=== PATIENT | female | born 1980 | race Asian ===

== ENCOUNTER 2020-09-21 06:03 | Outpatient (REF) | payer OTHER, SELFPAY | END 2020-09-21 06:04 | disposition home or self-care (01) | LOC: HO.LAB 06:03 | PROVIDERS: Visit Provider Internal Medicine | DX: Z20.828 Contact with and (suspected) exposure to other viral communicable diseases (principal) | CPT/HCPCS: C9803; U0003 ==

== ENCOUNTER 2021-01-29 09:49 | Emergency (ER) | payer OTHER, SELFPAY ==
--- NOTE | ~2021-01-29 | XR_ITS ---
EXAMINATION: XR SCAPULA, LEFT CLINICAL INFORMATION: Atraumatic left shoulder pain. COMPARISON: None TECHNIQUE: AP and scapular Y views of the left scapula. FINDINGS: The bones and soft tissues are normal. No scapular fracture. Glenohumeral and acromioclavicular alignment is normal. XR/XR scapula LT IMPRESSION: Unremarkable left scapula.
[2021-01-29 09:55] VITALS: BP 110/65; PULSE 67; RESP 16; TEMP 36.6; O2SAT 99; BMI 28.1
[2021-01-29] MEDS: NaPROXEN 500 MG TABLET PO (10:33)
[2021-01-29] MEDS: diazePAM 5 MG TABLET PO (10:33)
--- NOTE | 2021-01-29 11:24 | ED.NECK ---
HPI - Neck Pain/Injury General Chief Complaint: General Medical Stated Complaint: neck pain Time Seen by Provider: 01/29/21 10:01 Source: patient and family Mode of arrival: ambulatory Limitations: no limitations History of Present Illness HPI Narrative: 40-year-old female with past medical history of asthma and GERD presenting to the ED with complaints of atraumatic left neck/shoulder pain that started this morning after she woke up. Reports she had a backpack on last night for a while but it was not heavy. Reports that she use a different pillow which is lower than her normal a pillow so this could be cause although patient is unsure. Denies any chills, fevers, headaches, dizziness, jaw pain, nausea/vomiting, neck stiffness, focal or general weakness, rashes, chest pain, paresthesias, dyspnea on exertion, shortness of breath, orthopnea, any symptoms or any other symptoms complaints or concerns at this time. MD complaint: neck pain Onset (ago): day(s) Place: home Radiation: left lateral Severity: moderate Quality: aching Duration: constant Relieving factors: none Exacerbating factors: other (Palpation and movement of neck) Context: unknown Associated symptoms: none Treatments prior to arrival: other (Topical treatments and mild symptomatic relief) Related Data Previous Rx's Medication Instructions Recorded diazepam [Valium] 5 mg PO TID PRN #14 tab 01/29/21 naproxen 500 mg PO BID PRN #10 tab 01/29/21 Allergies Allergy/AdvReac Type Severity Reaction Status Date / Time No Known Allergies Allergy Verified 01/29/21 09:55 Review of Systems Review of Systems: Constitutional : No trauma, No Weight loss, No Fever, No Chills, ENT/Mouth : No Hearing loss, No Ear Pain, No Nasal Congestion, No Sinus Pain, No Hoarseness, No sore throat, No Rhinorrhea, No Swallowing Difficulty Cardiovascular : No Chest Pain, No SOB Respiratory : No Cough, No Dyspnea Gastrointestinal : No Nausea, No Vomiting, No Diarrhea, No abdominal Pain, No Hematochezia, No Melena Genitourinary : No Dysuria, No Urinary Frequency, No Hematuria, No Urinary or Bowel Incontinence/retention Musculoskeletal : + Neck pain, No Back pain, No joint stiffness, No joint swelling Skin : No Skin Lesions, No rash or signs of infection Neuro : + Tingling to b/l arms, No Weakness, No radiation, No Numbness, No headache, no loss of bowel or bladder incontinence, no saddle anesthesia Denies history of IV drug usage. Yes all other systems are reviewed and are negative [facility] Past Medical History Attestation statement: The following information was validated with the patient. Medical History Asthma GERD (gastroesophageal reflux disease) Social History Social History Smoked in Last 30 Days: No Use of substances other than those prescribed or required for medical reasons: No Advance Directives: No Advance Directives Information Provided: No Physical Exam Vital Signs: Vital Signs: Last Vital Signs Temp 97.8 F 01/29/21 09:55 Pulse 67 01/29/21 09:55 Resp 16 01/29/21 09:55 BP 110/65 01/29/21 09:55 Pulse Ox 99 01/29/21 09:55 Body Mass Index 28.1 vital signs have been reviewed as normal and appeared to be correct. Blood pressure normal. Heart rate normal. Respiration rate normal. Temperature normal. Oxygen saturation normal. Appearance: Alert. Oriented X3. No acute distress. Head: Normal external exam. Normocephalic. Atraumatic. Eyes: PERRLA. EOMI. Conjunctiva and sclera normal. Eyelids normal. ENT: Pharynx normal. Uvula midline. Moist mucous membranes. No trismus noted. No drooling noted. No muffled voice noted. Neck: Normal inspection. Neck supple. FROM. No adenopathy. Thyroid Normal. Trachea midline. No meningeal signs. No neck mass noted. Tender to palpation of left lateral paracervical musculature/left trapezius muscular trigger. No mid cervical tenderness noted. No step-offs or deformities noted. Patient neuro intact bilaterally and distally on all 4 extremities. Reflexes intact bilaterally and distally in all 4 extremities. No rashes/lesion/induration/fluctuance or signs of infection noted. No edema noted. CVS: Normal heart rate and rhythm. Heart sound normal. No murmurs noted. Pulses normal throughout. Respiratory: No respiratory distress. Painless inspiration. Breath sounds normal. No wheezes/rales/rhonchi noted. Chest nontender. No accessory muscle usage noted or decreased air movement noted. Back: Full range of motion noted. No obvious deformities, or edema. Full ROM in back and lower extremities. Skin: Skin warm and dry. Normal skin color. Normal skin turgor. No rashes/lesions/lacerations noted. Extremities: Extremities exhibit normal range of motion. Extremities nontender. Neuro: Oriented X 3. No motor deficit. No sensory deficit. Reflexes normal. Normal steady gait. Course Course Course Narrative: Pt c likely muscular pain of left trapezius/left paracervical musculature, but could be herniated disc. Neuro exam shows no deficits. Not c/w vascular etiology, perivertebral / other soft tissue neck / airway infection, or spinal fx / process. MRI and CT not warranted at this time. DC c meds and f/u patient understands agrees with this plan. MDM - Neck Pain/Injury Medical Records Attestation: I reviewed the patient's medical records. Imaging Data Left trapezius x-ray: Attestation: I personally reviewed and interpreted this imaging study as follows: Radiologist's impression: FINDINGS: The bones and soft tissues are normal. No scapular fracture. Glenohumeral and acromioclavicular alignment is normal. XR/XR scapula LT IMPRESSION: Unremarkable left scapula. Discharge Plan Discharge Clinical Impression: Trapezius muscle spasm, Spasmodic torticollis Patient Disposition: Home, Self-Care Instructions: Spasmodic Torticollis (ED), Muscle Spasm (ED) Prescriptions: New naproxen 500 mg tablet 500 mg PO BID PRN (Reason: pain) Qty: 10 RF: 0 diazepam [Valium] 5 mg tablet 5 mg PO TID PRN (Reason: muscle spasm) Qty: 14 RF: 0 Referrals: Crystal Tripp PA [Primary Care Provider] - 2 days Stand Alone Forms: Work/School Release Print Language: Spanish
== END 2021-01-29 12:38 | disposition home or self-care (01) ==
PROVIDERS: Emergency Provider Emergency Medicine; PCP Physician Assistant
DX: G24.3 Spasmodic torticollis (principal); M62.838 Other muscle spasm; M54.2 Cervicalgia; K21.9 Gastro-esophageal reflux disease without esophagitis; J45.909 Unspecified asthma, uncomplicated
CPT/HCPCS: 73010; 99283; 99284

== ENCOUNTER 2023-09-01 08:48 | Emergency (ER) | payer OTHER, SELFPAY ==
--- NOTE | ~2023-09-01 | CT_ITS ---
EXAMINATION: CT ABDOMEN AND PELVIS WITH CONTRAST CLINICAL INFORMATION: Left lower quadrant pain. COMPARISON: Pelvic ultrasound 09/01/2023 TECHNIQUE: Multidetector volumetric images were obtained from the superior aspect of the liver through the pubic symphysis following administration 85 mL of Omnipaque 350 intravenous contrast. Sagittal and coronal reformatted images were obtained on the technologist's workstation. Oral contrast: No This CT examination was performed using dose optimization techniques as appropriate, variously including the following: *Automated exposure control *Adjustment of mA and/or kV according to patient size (this includes techniques or standardized protocols for targeted exams where dose is matched to indication/reason for exam; i.e. extremities or head) *Use of iterative reconstruction technique DLP: 551 mGy-cm FINDINGS: LUNG BASES: The visualized lung bases are unremarkable. LIVER, GALLBLADDER, AND BILIARY TREE: The liver is normal in size and contour. No focal hepatic lesion or biliary ductal dilatation is present. Large gallstones. PANCREAS: Unremarkable. SPLEEN: Unremarkable. ADRENAL GLANDS: Unremarkable. KIDNEYS AND URETERS: The kidneys are normal in size, shape, and attenuation. No hydronephrosis, hydroureter, or calculi seen. No perinephric stranding. BLADDER: Mild circumferential wall thickening. Perivesicular stranding. GASTROINTESTINAL TRACT: Wall thickening of the sigmoid colon. No significant diverticular disease. No small bowel obstruction. Appendix is within normal limits. ABDOMINAL WALL: No significant hernia is appreciated. LYMPH NODES: Numerous subcentimeter mesenteric lymph nodes are appreciated. VASCULAR: Normal caliber abdominal aorta. PELVIC VISCERA: Inflammatory changes in the parametrium. The uterus is anteverted. There is fullness of bilateral adnexa. Small free fluid in the pelvis. OSSEOUS STRUCTURES: No destructive bone lesions. CT/CT abdomen pelvis w IV con IMPRESSION: Inflammatory changes in the pelvis most notably surrounding the uterus and ovaries. There is wall thickening of the sigmoid colon. There is perivesicular stranding. The possibility of pelvic inflammatory disease should be considered. Other possibilities include cystitis or colitis though these findings may be on a reactive basis. Advise clinical correlation. Cholelithiasis.
--- NOTE | ~2023-09-01 | US_ITS ---
EXAMINATION: US PELVIS CLINICAL INFORMATION: Severe pelvic pain COMPARISON: None available. TECHNIQUE: Ultrasound of the pelvis is performed using both transabdominal and transvaginal transducers along with Doppler. Transvaginal imaging is performed due to inadequate visualization transabdominally. FINDINGS: Uterus: The uterus is anteverted, retroflexed and measures 8.2 x 4.6 x 5.4 cm The double wall endometrial thickness is 0.5 cm. The uterus is smooth in contour and has normal myometrial echogenicity. There is a hypoechoic lesion in the right fundus measuring 2.0 x 1.6 x 1.6 cm suggestive of small fibroid. Adnexa: Both ovaries are visualized. There is normal color flow to the adnexa. There is no ovarian torsion. There is no pelvic ascites or fluid collection. Right ovary measures 3.6 x 3.1 x 2.1 cm and volume 12.2 mL there is anechoic cyst measuring 1.9 x 1.6 x 1.5 cm Left ovary measures 3.1 x 2.0 x 1.3 cm and volume 4.3 mL. No focal lesion seen. There is normal flow seen to both ovaries on color Doppler ultrasound. There is no free fluid in the cul-de-sac. US/US pelvic and transvaginal IMPRESSION: Small right uterine fibroid. Simple right ovarian cyst. Both ovaries are otherwise unremarkable.
--- NOTE | ~2023-09-01 | US_ITS ---
EXAMINATION: US PELVIS CLINICAL INFORMATION: Severe pelvic pain COMPARISON: None available. TECHNIQUE: Ultrasound of the pelvis is performed using both transabdominal and transvaginal transducers along with Doppler. Transvaginal imaging is performed due to inadequate visualization transabdominally. FINDINGS: Uterus: The uterus is anteverted, retroflexed and measures 8.2 x 4.6 x 5.4 cm The double wall endometrial thickness is 0.5 cm. The uterus is smooth in contour and has normal myometrial echogenicity. There is a hypoechoic lesion in the right fundus measuring 2.0 x 1.6 x 1.6 cm suggestive of small fibroid. Adnexa: Both ovaries are visualized. There is normal color flow to the adnexa. There is no ovarian torsion. There is no pelvic ascites or fluid collection. Right ovary measures 3.6 x 3.1 x 2.1 cm and volume 12.2 mL there is anechoic cyst measuring 1.9 x 1.6 x 1.5 cm Left ovary measures 3.1 x 2.0 x 1.3 cm and volume 4.3 mL. No focal lesion seen. There is normal flow seen to both ovaries on color Doppler ultrasound. There is no free fluid in the cul-de-sac. US/US pelvic ovarian doppler IMPRESSION: Small right uterine fibroid. Simple right ovarian cyst. Both ovaries are otherwise unremarkable.
[2023-09-01 08:51] VITALS: BP 115/83; PULSE 97; RESP 18; TEMP 36.7; O2SAT 97; BMI 32.7
--- NOTE | 2023-09-01 09:11 | ED.ABDPAIN ---
HPI - Abdominal Pain General Chief Complaint: Abdominal Pain Stated Complaint: Stomach and Lower Abd Pain Time Seen by Provider: 09/01/23 08:59 Source: patient Mode of arrival: ambulatory Limitations: no limitations History of Present Illness HPI narrative: 43 yo female with PMH of GERD, asthma no prior abdominal surgeries here with c/o holding her urination due to deadline yesterday then when she went to urinate it hurt and now she has intense lower abdomial pain with nausea. She is on her menses. The pain was more severe yesterday. She has not been able to eat or drink much. She has never experienced this before. She is able to urinate. MD elicited complaint: abdominal pain Pertinent past history: none Onset (ago): day(s) (1) Pain Consistency: constant Location: RLQ, LLQ and suprapubic Severity: moderate Quality: cramping Radiation: none Migration to: no migration Exacerbating factors: movement Relieving factors: nothing Associated symptoms: nausea Treatments prior to arrival: other (tylenol) Related Data Previous Rx's Medication Instructions Recorded diazepam 5 mg tablet (Valium) 5 mg PO TID PRN muscle spasm #14 01/29/21 tabs naproxen 500 mg tablet 500 mg PO BID PRN pain #10 tabs 01/29/21 doxycycline hyclate 100 mg tablet 100 mg PO BID 14 days #28 tabs 09/01/23 hydrocodone 5 mg-acetaminophen 325 1 tab PO Q6H PRN pain #10 tabs 09/01/23 mg tablet metronidazole 500 mg tablet 500 mg PO BID #28 tabs 09/01/23 ondansetron 4 mg disintegrating 4 mg PO Q8H PRN nausea and 09/01/23 tablet vomiting #20 tabs Allergies Allergy/AdvReac Type Severity Reaction Status Date / Time No Known Allergies Allergy Verified 09/01/23 08:55 Review of Systems Review of Systems Constitutional : No Weight loss, No Fever, No Chills ENT/Mouth : No sore throat, No Rhinorrhea Eyes: No Swelling, No Redness Cardiovascular : No Chest Pain, No SOB, NoEdema Respiratory : No Cough, No Sputum, No Wheezing Gastrointestinal : Positive Nausea, no Vomiting, no Diarrhea, positive abdominal Pain, No Hematochezia, No Melena Genitourinary : No Dysuria, No Urinary Frequency, No Hematuria, No Urgency Musculoskeletal : No joint pain, No Myalgias, No Joint Swelling Skin : No Skin Lesions, No rash Neuro : No Weakness, No Numbness, No Dizziness, No Headache Psych : No Anxiety/Panic, No Depression Heme/Lymph: No Bruising, No Lymphadenopathy Endocrine : No Polyuria, No Polydipsia All other systems reviewed and are negative. COUNTS INCLUDE 234 BEDS AT THE [facility] Past Medical History Attestation statement: The following information was validated with the patient. Medical History GERD (gastroesophageal reflux disease) Asthma Social History Social History (Updated 09/01/23 @ 09:26 by Stormy Burns DO) Patient Tobacco Use Status: Never used Tobacco Advance Directives: No Advance Directives Information Provided: No Physical Exam ED Vital Signs: Vital Signs - 24 hr 09/01/23 08:51 09/01/23 10:53 09/01/23 13:06 Temperature 98.0 F 98.6 F 98.5 F Pulse Rate 97 85 82 Respiratory Rate 18 16 16 Blood Pressure 115/83 110/59 L 109/69 Pulse Oximetry 97 99 99 Oxygen Delivery Method Room Air Room Air Room Air 09/01/23 13:34 Temperature Pulse Rate 70 Respiratory Rate 20 Blood Pressure 111/66 Pulse Oximetry 99 Oxygen Delivery Method Room Air BMI result Body Mass Index 32.7 Appearance: Alert. Oriented X3. No acute distress. Eyes: Pupils equal, round and reactive to light. ENT: Pharynx normal. Neck: Normal inspection. Neck supple. CVS: Normal heart rate and rhythm. Pulses normal. Respiratory: No respiratory distress. Breath sounds normal. : Holly tech present mild CMT and ttp with palpation of uterus - scant red blood noted on menses Abdomen: Soft and moderate ttp in LLQ Skin: Skin warm and dry. Normal skin color. Normal skin turgor. Extremities: No lower extremity edema. No calf ttp Neuro: Oriented X 3. No motor deficit. No sensory deficit. Medical Decision Making Medical Decision Making MDM Narrative: 43 yo female with PMH of asthma and GERD here with c/o lower abdominal pain and nausea initially worse yesterday now painful and lingering she is on her menses at this time will need basic labs, start with US for ovarian cyst, IV morphine/toradol for pain, UA. If US negative will proceed with CT scan for diverticulitis/colitis. Differential Diagnosis Differential Diagnoses: The differential diagnosis associated with the presentation includes renal colic, ovarian cyst, painful menses, diverticulitis Admission/Observation Consideration of admission/observation: Escalation of care including admission/observation considered not toxic, labs stable, tolerating PO can be managed as outpatient Lab Data MDM Lab Attestation statement: I reviewed the patient's lab results. 09/01/23 09:37 09/01/23 09:37 Labs: Lab Results 09/01/23 09/01/23 09/01/23 Range/Units 09:21 09:37 12:08 WBC 12.4 H (4.8-10.8) X10*3/uL RBC 3.95 L (4.20-5.50) X10*6/uL Hgb 11.4 L (12.0-16.0) g/dl Hct 34.1 L (37.0-47.0) % MCV 86.3 (80.0-98.0) fL MCH 28.9 (27.0-33.0) pg MCHC 33.4 (31.0-35.0) g/dl RDW 14.6 (11.0-16.0) % Plt Count 226 (160-400) X10*3/uL MPV 10.4 (9.4-12.3) fL Immature Gran % (Auto) 0.2 (0.0-0.4) % Neut % (Auto) 78.3 H (45-73) % Lymph % (Auto) 15.6 L (20-40) % [place] % (Auto) 5.4 (2-11) % Eos % (Auto) 0.3 (0-4) % Baso % (Auto) 0.2 (0-2) % Lymph # (Auto) 1.9 (1.2-4.9) X10*3/uL [place] # (Auto) 0.7 (0.1-1.2) X10*3/uL Eos # (Auto) 0.0 (0.0-0.4) X10*3/uL Baso # (Auto) 0.0 (0.0-0.2) X10*3/uL Abs Immat Gran (auto) 0.03 (0.00-0.03) X10*3/uL Absolute Neuts (auto) 9.7 H (2.0-8.3) x10*3/uL Absolute Nucleated RBC 0.000 (0.0-0.012) X10*3/uL Nucleated RBC % (auto) 0.0 (0.0-0.2) /100WBC Sodium 139 (135-145) mmol/L Potassium 3.6 (3.3-5.1) mmol/L Chloride 109 H (96-108) mmol/L Carbon Dioxide 24 (22-29) mmol/L Anion Gap 10 L (12-20) BUN 9 (9-16) mg/dL Creatinine 0.67 (0.5-1.4) mg/dL Estim Creat Clear Calc 99.6 Estimated GFR > 60 POC Glucose 109 (60-115) mg/dL Random Glucose 121 H (60-115) mg/dL Calcium 8.8 (8.4-10.2) mg/dL Magnesium 2.2 (1.6-2.6) mg/dL Total Bilirubin 0.6 (0.0-1.0) mg/dL Direct Bilirubin 0.2 (0.0-0.5) mg/dL AST 16 (5-31) U/L ALT 16 (0-31) U/L Alkaline Phosphatase 38 L (39-117) U/L Total Protein 7.0 (6.5-8.0) g/dL Albumin 3.9 (3.5-5.0) g/dL Lipase 16 (8-78) U/L Urine Color Yellow Urine Appearance Clear Urine pH 6.5 (5.0-9.0) Ur Specific [place] <= 1.005 (1.005-1.025) Urine Protein Negative (Neg-Trace) mg/dL Urine Glucose (UA) Negative (Negative) mg/dL Urine Ketones Negative (Negative) mg/dL Urine Blood Moderate (2+) H (Negative) Urine Nitrite Negative (Negative) Ur Leukocyte Esterase Small (1+) H (Negative) Urine RBC 0-2 (0-2) /HPF Urine WBC 0-5 (0-5) /HPF Ur Squamous Epith Cells 3-5 (0-2) /HPF Urine Bacteria None Seen (None Seen) Hyaline Casts 0-2 (0-2) /LPF Urine Test NEGATIVE (NEGATIVE) Independent Interpretation I performed an independent interpretation of an: Ultrasound and CT Scan (possible PID) Radiology Impression Discussion of test interpretation with radiology: I have reviewed the radiologist's reading. Prescription Management I considered prescription management with: Pain Medication and Antibiotic Medications Administered Discontinued Medications Generic Name Dose Route Start Last Admin Trade Name Samuel PRN Reason Stop Dose Admin Acetaminophen 650 mg 09/01/23 14:06 09/01/23 14:09 Acetaminophen 325 Mg Tablet PO 09/01/23 14:07 650 mg ONCE ONE Administration Sodium Chloride 1,000 mls @ 999 mls/hr 09/01/23 09:30 09/01/23 12:13 Ns IVCONT 09/01/23 10:30 Infused .Q1H1M [place] Infusion Ceftriaxone Sodium 1 gm/ 50 mls @ 100 mls/hr 09/01/23 15:14 09/01/23 15:34 Sodium Chloride IV 09/01/23 15:43 100 mls/hr ONCE ONE Administration Iohexol 100 ml 09/01/23 13:02 09/01/23 13:02 Iohexol 350 Mg/Ml 100 Ml Infus..Btl IV 09/01/23 13:03 85 ml ONCE ONE Administration Ketorolac Tromethamine 15 mg 09/01/23 09:17 09/01/23 09:40 Ketorolac Tromethamine 15 Mg/Ml Vial IVPUSH 09/01/23 09:18 15 mg ONCE ONE Administration Morphine Sulfate 4 mg 09/01/23 09:17 09/01/23 09:41 Morphine Sulfate 4 Mg/Ml Cartridge IVPUSH 09/01/23 09:18 4 mg ONCE ONE Administration Protocol Ondansetron HCl 4 mg 09/01/23 09:17 09/01/23 09:40 Ondansetron Hcl 4 Mg/2 Ml Vial IVPUSH 09/01/23 09:18 4 mg ONCE ONE Administration Discharge Plan Discharge Clinical Impression: Acute pelvic inflammatory disease (PID) Patient Disposition: Home, Self-Care Instructions: Pelvic Inflammatory Disease (ED) Additional Instructions: we will call you with positive results of gonorrhea and chlamydia suspect this is just PID can be caused by bacteria as well. On doxycycline, do not take pills immediately before going to bed and swallow pills with plenty of water. Avoid direct sunlight, iron, antacids, and Pepto Bismol. Call your provider if you develop new ringing in your ears, new problems hearing, dizziness, difficulty swallowing, rash, abdominal discomfort, nausea, or diarrhea.? take a probiotic while on antibiotics while on flagyl you cannot drink alcohol follow up with your doctor in the next week return for fevers, vomiting, worsening pain, inability to eat or drink or any other concerns. US/US pelvic and transvaginal IMPRESSION: Small right uterine fibroid. Simple right ovarian cyst. Inflammatory changes in the pelvis most notably surrounding the uterus and ovaries. There is wall thickening of the sigmoid colon. There is perivesicular stranding. The possibility of pelvic inflammatory disease should be considered Prescriptions: New metronidazole 500 mg tablet 500 mg PO BID Qty: 28 0RF doxycycline hyclate 100 mg tablet 100 mg PO BID 14 Days Qty: 28 0RF ondansetron 4 mg tablet,disintegrating 4 mg PO Q8H PRN (Reason: nausea and vomiting) Qty: 20 0RF hydrocodone-acetaminophen 5-325 mg tablet 1 tab PO Q6H PRN (Reason: pain) Qty: 10 0RF Rx Instructions: partial fill okay; Partial Fill upon patient request. No Action naproxen 500 mg tablet 500 mg PO BID PRN (Reason: pain) Qty: 10 0RF diazepam [Valium] 5 mg tablet 5 mg PO TID PRN (Reason: muscle spasm) Qty: 14 0RF
[2023-09-01 09:24] LABS: Glucose, Whole Blood 109 mg/dL (60-115)
[2023-09-01 09:40] LABS: MANUAL DIFF FLAG NO
[2023-09-01] MEDS: ondansetron HCL 4 MG/2 ML VIAL IVPUSH (09:40)
[2023-09-01] MEDS: Ketorolac Tromethamine 15 MG/ML VIAL IVPUSH (09:40)
[2023-09-01] MEDS: 0.9 % Sodium Chloride 1,000 ML 999 ML IVCONT (09:40)
[2023-09-01 09:41] LABS: Basophils Percent Auto 0.2 % (0-2); Eosinophils Percent Auto 0.3 % (0-4); Hematocrit 34.1 % (37.0-47.0); Hemoglobin 11.4 g/dl (12.0-16.0); Imm Gran Abs Auto 0.03 X10*3/uL (0.00-0.03); Imm Gran Pct Auto 0.2 % (0.0-0.4); Lymphocytes Absolute Auto 1.9 X10*3/uL (1.2-4.9); Lymphocytes Percent Auto 15.6 % (20-40); Mean Corpuscular HGB Conc 33.4 g/dl (31.0-35.0); Mean Corpuscular Hemoglobin 28.9 pg (27.0-33.0); Mean Corpuscular Volume 86.3 fL (80.0-98.0); Mean Platelet Volume 10.4 fL (9.4-12.3); Monocytes Absolute Auto 0.7 X10*3/uL (0.1-1.2); Monocytes Percent Auto 5.4 % (2-11); Neutrophils Absolute Auto 9.7 x10*3/uL (2.0-8.3); Neutrophils Percent Auto 78.3 % (45-73); Platelet Count 226 X10*3/uL (160-400); Red Blood Count 3.95 X10*6/uL (4.20-5.50); Red Cell Distribution Width 14.6 % (11.0-16.0); White Blood Count 12.4 X10*3/uL (4.8-10.8)
[2023-09-01] MEDS: Morphine Sulfate 4 MG/ML CARTRIDGE IVPUSH (09:41)
--- NOTE | 2023-09-01 09:53 | PC.NURSE ---
iv established, labs drawn and sent. medicated per the MAR with fluids infusing at this time. awaiting ultrasound with call owens in reach, resting quietly in room respirations even and unlabored.
[2023-09-01 09:56] LABS: Alanine Aminotransferase 16 U/L (0-31); Albumin Level 3.9 g/dL (3.5-5.0); Alkaline Phosphatase 38 U/L (39-117); Anion Gap 10 (12-20); Aspartate Amino Transferase 16 U/L (5-31); Bilirubin Direct 0.2 mg/dL (0.0-0.5); Bilirubin Total 0.6 mg/dL (0.0-1.0); Blood Urea Nitrogen 9 mg/dL (9-16); Calcium 8.8 mg/dL (8.4-10.2); Carbon Dioxide 24 mmol/L (22-29); Chloride 109 mmol/L (96-108); Creatinine Clr Calc Pharmacy 99.6; Estimated Glomerular Filt Rate > 60; Glucose Random 121 mg/dL (60-115); Lipase 16 U/L (8-78); Magnesium 2.2 mg/dL (1.6-2.6); Potassium 3.6 mmol/L (3.3-5.1); Sodium 139 mmol/L (135-145)
[2023-09-01 10:53] VITALS: BP 110/59; PULSE 85; RESP 16; TEMP 37; O2SAT 99
--- NOTE | 2023-09-01 10:53 | PC.NURSE ---
patient back from ultrasound at this time, reporting improvement in her pain
[2023-09-01 12:18] LABS: Appearance Urine Clear; Color Urine Yellow; Glucose Urine UA Negative (Negative); Leukocyte Esterase Urine Small (1+) (Negative); Nitrite Urine Negative (Negative); PH 6.5 (5.0-9.0); Specific Gravity - Urine <= 1.005 (1.005-1.025); UMIC TRIGGER UACC YES; UPreg QC Valid YES; Urine Blood Moderate (2+) (Negative); Urine Ketones Negative (Negative); Urine Pregnancy NEGATIVE (NEGATIVE); Urine Protein Negative (Neg-Trace)
[2023-09-01 12:25] LABS: Bacteria Urine None Seen (None Seen); Hyaline Casts Urine 0-2 /LPF (0-2); RBC Urine 0-2 /HPF (0-2); UACC Culture Trigger YES; WBC Urine 0-5 /HPF (0-5)
[2023-09-01] MEDS: iohexoL 350 MG/ML 100 ML INFUS..BTL IV (13:02)
[2023-09-01 13:06] VITALS: BP 109/69; PULSE 82; RESP 16; TEMP 36.9; O2SAT 99
--- NOTE | 2023-09-01 13:07 | PC.NURSE ---
continues to rest quietly in room, awaiting results of ct scan
[2023-09-01 13:34] VITALS: BP 111/66; PULSE 70; RESP 20; O2SAT 99
[2023-09-01] MEDS: Acetaminophen 325 MG TABLET 650 MG PO (14:09)
[2023-09-01] MEDS: cefTRIAXone sodium 1 GM in 0.9 % Sodium Chloride 50 ML IV (15:34)
[2023-09-02 13:09] LABS: CT PCR NOT DETECTED (Not Detect.); NG PCR NOT DETECTED (Not Detect.)
[2023-09-02 13:33] LABS: BV Int Neg Control Negative (Negative); BV Int Pos Control Positive (Positive)
== END 2023-09-01 16:05 | disposition home or self-care (01) ==
PROVIDERS: Emergency Provider Emergency Medicine; PCP Physician Assistant
DX: N73.9 Female pelvic inflammatory disease, unspecified (principal); R10.2 Pelvic and perineal pain; R10.32 Left lower quadrant pain; R11.2 Nausea with vomiting, unspecified; R10.31 Right lower quadrant pain; Z79.899 Other long term (current) drug therapy
CPT/HCPCS: 0353U; 36415; 74177; 76830; 76856; 80048; 80076; 81001; 81025; 82947; 83690; 83735; 85025; 87086; 87480; 87510; 87660; 93975; 96361; 96374; 96375; 99285; J0696; J1885; J2270; J2405; Q9967

== ENCOUNTER 2024-12-03 08:19 | Emergency (ER) | payer OTHER, SELFPAY ==
--- NOTE | 2024-12-03 | ECG_ITS ---
Test Reason : CP Blood Pressure : */* mmHG Vent. Rate : 77 BPM Atrial Rate : 77 BPM P-R Int : 174 ms QRS Dur : 86 ms QT Int : 402 ms P-R-T Axes : 46 25 32 degrees QTcB Int : 454 ms Normal sinus rhythm Normal ECG No previous ECGs available Referred By: Generic ED Physician Electronically Signed By: Michael Gomez
[2024-12-03 08:24] VITALS: BP 132/79; PULSE 72; RESP 16; TEMP 36.6; O2SAT 100; BMI 31.6
[2024-12-03 08:49] LABS: MANUAL DIFF FLAG NO
[2024-12-03 08:50] LABS: Basophils Percent Auto 0.4 % (0-2); Eosinophils Absolute Auto 0.1 X10*3/uL (0.0-0.4); Eosinophils Percent Auto 1.4 % (0-4); Hematocrit 39.4 % (37.0-47.0); Hemoglobin 13.2 g/dl (12.0-16.0); Imm Gran Abs Auto 0.01 X10*3/uL (0.00-0.03); Imm Gran Pct Auto 0.1 % (0.0-0.4); Lymphocytes Absolute Auto 2.4 X10*3/uL (1.2-4.9); Mean Corpuscular HGB Conc 33.5 g/dl (31.0-35.0); Mean Corpuscular Hemoglobin 28.8 pg (27.0-33.0); Mean Platelet Volume 10.2 fL (9.4-12.3); Monocytes Absolute Auto 0.3 X10*3/uL (0.1-1.2); Monocytes Percent Auto 4.1 % (2-11); Neutrophils Absolute Auto 4.9 x10*3/uL (2.0-8.3); Platelet Count 233 X10*3/uL (160-400); Red Blood Count 4.58 X10*6/uL (4.20-5.50); White Blood Count 7.8 X10*3/uL (4.8-10.8)
[2024-12-03 09:11] LABS: Alanine Aminotransferase 27 U/L (0-31); Albumin Level 4.2 g/dL (3.5-5.0); Alkaline Phosphatase 34 U/L (39-117); Anion Gap 18 (12-20); Aspartate Amino Transferase 18 U/L (5-31); Bilirubin Total 0.3 mg/dL (0.0-1.0); Blood Urea Nitrogen 13 mg/dL (9-16); Carbon Dioxide 22 mmol/L (22-29); Chloride 107 mmol/L (96-108); Creatinine Clr Calc Pharmacy 90.1; Estimated Glomerular Filt Rate > 60; Glucose Random 115 mg/dL (60-115); Potassium 4.3 mmol/L (3.3-5.1); Sodium 143 mmol/L (135-145); Total Protein 7.5 g/dL (6.5-8.0)
[2024-12-03 09:24] LABS: HCG Quantitative < 2 mIU/mL; Troponin-I High Sensitivity < 2.7 ng/L (<3.5-17.0)
--- NOTE | 2024-12-03 12:28 | ED_ITS ---
HPI - General Adult General Chief complaint: General Medical Stated complaint: Neck pain/stiffness R side Time Seen by Provider: 12/03/24 12:28 Source: patient Mode of arrival: ambulatory Limitations: no limitations History of Present Illness ED Provider: Lynnette Jimenez PA-C HPI narrative: Patient is a 44 year old assigned female at with a history of asthma and GERD presenting to the emergency department today with right sided neck pain and a headache. Patient states that she started having right sided neck and head pain late last night and it has continued into today. Patient states that her neck feels tight and is difficult to move. Patient denies any dizziness, lightheadedness, abdominal pain, nausea, vomiting, fever, chills, blurry vision, double vision, loss of vision, chest pain, difficulty breathing, shortness of breath, back pain, night sweats, pain with urination, increased urinary frequency, increased urinary urgency, blood in her urine or stool, syncope or a near syncopal episode, recent trauma or falls, bowel incontinence, bladder incontinence, or any other complaints at this time. Onset (ago): hour(s) Location: neck and right Exacerbating factors: movement Associated symptoms: denies other symptoms Treatments prior to arrival: none Related Data Previous Rx's ?Medication ?Instructions ?Recorded diazepam 5 mg tablet (Valium) 5 mg PO TID PRN muscle spasm #14 01/29/21 tabs naproxen 500 mg tablet 500 mg PO BID PRN pain #10 tabs 01/29/21 doxycycline hyclate 100 mg tablet 100 mg PO BID 14 days #28 tabs 09/01/23 hydrocodone 5 mg-acetaminophen 325 1 tab PO Q6H PRN pain #10 tabs 09/01/23 mg tablet metronidazole 500 mg tablet 500 mg PO BID #28 tabs 09/01/23 ondansetron 4 mg disintegrating 4 mg PO Q8H PRN nausea and 09/01/23 tablet vomiting #20 tabs cyclobenzaprine 5 mg tablet 5 mg PO TID PRN muscle spasm 7 12/03/24 days #21 tabs Allergies Allergy/AdvReac Type Severity Reaction Status Date / Time No Known Allergies Allergy Verified 12/03/24 08:31 Review of Systems 2 Constitutional: Constitutional: Reports no additional constitutional complaints, Denies chills, Denies fever(s), Reports headache(s) and Denies night sweats Eyes: Eyes: Reports no additional eye complaints, Denies blurry vision, Denies change in vision, Denies diplopia, Denies eye discharge, Denies loss of vision and Denies eye pain ENT: Denies dizziness and Reports headache(s) Comments: right sided neck pain Cardiovascular: Cardiovascular: Reports no additional cardiovascular complaints, Denies chest pain, Denies lightheadedness, Denies Loss of Consciousness and Denies dyspnea Respiratory: Respiratory: Reports no additional respiratory complaints and Denies dyspnea Gastrointestinal: Gastrointestinal: Reports no additional gastrointestinal complaints, Denies abdominal pain, Denies melena, Denies hematochezia, Denies change in bowel habits and Denies change in stool character Genitourinary: Genitourinary: Denies hematuria, Denies urinary frequency, Denies dysuria, Denies urinary incontinence, Denies urinary hesitancy and Denies urinary urgency Musculoskeletal: Musculoskeletal: Reports no additional musculoskeletal complaints, Denies numbness and Denies tingling Neurologic: Denies dizziness, Reports headache(s), Denies loss of vision, Denies numbness and Denies tingling Psychiatric: Psychiatric: Reports no additional psychiatric complaints Endocrine: Endocrine: Reports no additional endocrine complaints Hematologic/Lymphatic: Hematologic/Lymphatic: Reports no additional hematologic/lymphatic complaints Allergic/Immunologic: Allergic/Immunologic: Reports no additional allergic/immunologic complaints PMFSH Past Medical History Attestation statement: The following information was validated with the patient. Source: old records reviewed and nursing notes reviewed Medical History GERD (gastroesophageal reflux disease) Asthma Social History Social History Patient Tobacco Use Status: Never used Tobacco Advance Directives: No Advance Directives Information Provided: Yes Physical Exam ED Vital Signs: Vital Signs - 24 hr 12/03/24 08:24 12/03/24 13:14 12/03/24 13:16 Temperature 97.9 F 0 F L 0 F L Pulse Rate 72 16 L 16 L Respiratory Rate 16 16 Blood Pressure 132/79 128/88 128/88 Pulse Oximetry 100 97 97 Oxygen Delivery Method Room Air Room Air Room Air BMI result Body Mass Index 31.6 Const General: cooperative, no acute distress, alert and awake Nutritional Appearance: well nourished Orientation/consciousness: patient oriented x3 Limitations: no limitations HENMT Head: Yes normal to inspection and Yes atraumatic Ears: hearing grossly normal bilaterally and external ears normal General nose exam: Normal external nose present, no nasal discharge noted and no epistaxis Face and sinus: Yes normal facial exam, No abrasion and No laceration Mouth: Normal oral and palatal mucosa present, no drooling and no muffled voice Eyes General: appearance normal, both eyes and all related structures Periorbital: periorbital findings normal Eyelids: Yes eyelids normal Conjunctivae: conjunctivae normal Pupils: Equal, round and reactive pupils present EOM: EOMs intact bilaterally Neck Other: limited range of motion of the neck to the right secondary to pain Neck: Yes normal visual inspection and Yes no lymphadenopathy Chest Chest palpation & inspection: normal inspection of the chest Resp Effort & Inspection: normal respiratory effort and able to speak in complete sentences GI Inspection: Yes normal to inspection Neuro General: patient oriented x3, moves all extremities and CN's II-XI intact bilaterally Cranial nerves: Yes Equal, round and reactive pupils present Cognition (Neuro): normal cognition Extrem General: Yes normal to inspection, Yes full ROM and Yes capillary refill normal Psych Appearance: grossly normal Mental Status: mental status grossly normal Affect: normal affect Attitude: cooperative Thought process: Normal thought process present Thought content: Normal thought content present Insight: Good insight present (Psych) Medications Administered Discontinued Medications Generic Name Dose Route Start Last Admin Trade Name Samuel PRN Reason Stop Dose Admin Diazepam 2 mg 12/03/24 12:50 12/03/24 13:12 Diazepam 2 Mg Tablet PO 12/03/24 12:51 2 mg ONCE ONE Administration Ketorolac Tromethamine 15 mg 12/03/24 12:50 12/03/24 13:11 Ketorolac Tromethamine 15 Mg/Ml Vial IM 12/03/24 12:51 15 mg ONCE ONE Administration Medical Decision Making Medical Decision Making MDM Narrative: Patient is a 44 year old assigned female at with a history of asthma and GERD presenting to the emergency department today with right sided neck pain and a headache. Patient's physical exam was as noted in the physical exam portion of this note and most consistent with a muscle spasm. Patient's blood work was unremarkable. Patient's EKG was unremarkable. I explained my physical exam findings as well as all test results to the patient. I answered all questions asked by the patient. I stressed the importance of the patient taking her medication as directed (either prescribed or as the over the counter packaging recommends). I stressed the importance of the patient following up with her primary care provider. I stressed the importance of the patient returning to the emergency department immediately if her symptoms were to worsen or if she were to develop any dizziness, shortness of breath, difficulty breathing, chest pain, blurry vision, loss of vision, nausea, vomiting, abdominal pain, fever, chills, back pain, or any other complaints. Patient verbalized agreement and understanding with this treatment plan and discharge. Differential Diagnosis Differential Diagnoses: The differential diagnosis associated with the presentation includes Right sided neck pain Cervical strain Cervical sprain Muscle spasm Admission/Observation Consideration of admission/observation: Escalation of care including admission/observation considered Patient would have been admitted to the hospital had her work up had any findings where hospital admission was appropriate and her clinical presentation warranted hospital admission. Lab Data [facility] Lab Attestation statement: I reviewed the patient's lab results. My interpretation of these results are in the [facility] Rationale portion of this note. 12/03/24 08:44 12/03/24 08:44 Labs: Lab Results 12/03/24 Range/Units 08:44 WBC 7.8 (4.8-10.8) X10*3/uL RBC 4.58 (4.20-5.50) X10*6/uL Hgb 13.2 (12.0-16.0) g/dl Hct 39.4 (37.0-47.0) % MCV 86.0 (80.0-98.0) fL MCH 28.8 (27.0-33.0) pg MCHC 33.5 (31.0-35.0) g/dl RDW 14.0 (11.0-16.0) % Plt Count 233 (160-400) X10*3/uL MPV 10.2 (9.4-12.3) fL Immature Gran % (Auto) 0.1 (0.0-0.4) % Neut % (Auto) 63.0 (45-73) % Lymph % (Auto) 31.0 (20-40) % Churchill % (Auto) 4.1 (2-11) % Eos % (Auto) 1.4 (0-4) % Baso % (Auto) 0.4 (0-2) % Lymph # (Auto) 2.4 (1.2-4.9) X10*3/uL Churchill # (Auto) 0.3 (0.1-1.2) X10*3/uL Eos # (Auto) 0.1 (0.0-0.4) X10*3/uL Baso # (Auto) 0.0 (0.0-0.2) X10*3/uL Abs Immat Gran (auto) 0.01 (0.00-0.03) X10*3/uL Absolute Neuts (auto) 4.9 (2.0-8.3) x10*3/uL Absolute Nucleated RBC 0.000 (0.0-0.012) X10*3/uL Nucleated RBC % (auto) 0.0 (0.0-0.2) /100WBC Sodium 143 (135-145) mmol/L Potassium 4.3 (3.3-5.1) mmol/L Chloride 107 (96-108) mmol/L Carbon Dioxide 22 (22-29) mmol/L Anion Gap 18 (12-20) BUN 13 (9-16) mg/dL Creatinine 0.72 (0.5-1.4) mg/dL Estim Creat Clear Calc 90.1 Estimated GFR > 60 Random Glucose 115 (60-115) mg/dL Calcium 9.0 (8.4-10.2) mg/dL Total Bilirubin 0.3 (0.0-1.0) mg/dL AST 18 (5-31) U/L ALT 27 (0-31) U/L Alkaline Phosphatase 34 L (39-117) U/L Troponin I High Sens < 2.7 (<3.5-17.0) ng/L Total Protein 7.5 (6.5-8.0) g/dL Albumin 4.2 (3.5-5.0) g/dL Beta HCG, Quant < 2 mIU/mL Independent Interpretation I performed an independent interpretation of an: EKG Interpretation: I independently interpreted this EKG and am in agreement with the below findings: Vent. Rate: 77 BPM Atrial Rate: 77 BPM P-R Int: 174 ms QRS Dur: 86 ms QT Int: 402 ms P-R-T Axes: 46 25 32 degrees QTcB Int: 454 ms Normal sinus rhythm Normal ECG No previous ECGs available Electronically Signed By: Michael Gomez Dictated By: Michael Gomez MD Signed By: Electronically signed by Michael Gomez MD 12/03/24 1204 Prescription Management I considered prescription management with: Pain Medication (patient prescribed pain medication) Discharge Plan Discharge Clinical Impression: Cervical paraspinal muscle spasm Patient Disposition: Home, Self-Care Instructions: Muscle Spasm (ED) Additional Instructions: Follow up with your primary care provider. Return to the emergency department immediately if your symptoms worsen or if you develop any dizziness, shortness of breath, difficulty breathing, chest pain, blurry vision, loss of vision, nausea, vomiting, abdominal pain, fever, chills, back pain, or any other complaints. Prescriptions: New cyclobenzaprine 5 mg tablet 5 mg PO TID PRN (Reason: muscle spasm) 7 Days Qty: 21 0RF No Action naproxen 500 mg tablet 500 mg PO BID PRN (Reason: pain) Qty: 10 0RF diazepam [Valium] 5 mg tablet 5 mg PO TID PRN (Reason: muscle spasm) Qty: 14 0RF metronidazole 500 mg tablet 500 mg PO BID Qty: 28 0RF doxycycline hyclate 100 mg tablet 100 mg PO BID 14 Days Qty: 28 0RF ondansetron 4 mg tablet,disintegrating 4 mg PO Q8H PRN (Reason: nausea and vomiting) Qty: 20 0RF hydrocodone-acetaminophen 5-325 mg tablet 1 tab PO Q6H PRN (Reason: pain) Qty: 10 0RF Rx Instructions: partial fill okay; Partial Fill upon patient request. Referrals: Crystal Tripp PA [Primary Care Provider] - Stand Alone Forms: Work/School Release Interventions: ED Discharge Assessment Last Done: 12/03/24 13:16 Discharge Date/Time: 12/03/24 13:16 Print Language: Greenlandic
[2024-12-03] MEDS: Ketorolac Tromethamine 15 MG/ML VIAL IM (13:11)
[2024-12-03] MEDS: diazePAM 2 MG TABLET PO (13:12)
[2024-12-03 13:14] VITALS: BP 128/88; PULSE 16; TEMP -17.7; TEMP 0; O2SAT 97
[2024-12-03 13:16] VITALS: BP 128/88; PULSE 16; RESP 16; TEMP -17.7; TEMP 0; O2SAT 97
== END 2024-12-03 13:16 | disposition home or self-care (01) ==
PROVIDERS: Emergency Provider Emergency Medicine; PCP Physician Assistant
DX: M54.2 Cervicalgia (principal); R51.9 Headache, unspecified; R07.89 Other chest pain; Z79.899 Other long term (current) drug therapy
CPT/HCPCS: 36415; 80053; 84484; 84702; 85025; 93005; 96372; 99284; J1885

== ENCOUNTER → 2024-12-03 08:40 | Outpatient (BNV) | payer OTHER, SELFPAY | PROVIDERS: Emergency Provider Emergency Medicine; PCP Physician Assistant; Visit Provider Internal Medicine Cardiovascular Disease | DX: R07.9 Chest pain, unspecified (principal) | CPT/HCPCS: 93010 ==